=== PATIENT | female | born 1990 | race Caucasian/White ===

== ENCOUNTER 2016-07-15 20:32 | Outpatient (CLI) | payer OTHER ==
[~2016-07-15 20:32] MED LIST: ACYCLOVIR400 MG PO; PERCOCET1 TA1 PO; PRENATAL1 TAB PO
--- NOTE | 2016-07-15 20:52 | DIAGNOSTIC IMAGING REPORT ---
PROCEDURE: XR HAND 1 OR 2 VIEWS - RIGHT INDICATION: SUSPECTED FRACTURE OF RIGHT MIDDLE FINGER TECHNIQUE: Two views. COMPARISON: None. FINDINGS: There is mild radial deviation of the right third finger at the level of the distal interphalangeal joint. Associated mild soft tissue swelling. There is no evidence of fracture. The rest of the osseous structures and joint spaces are normal. IMPRESSION: 1. Mild radial deviation of the distal right third finger. Associated mild soft tissue swelling. Consider soft tissue injury or chronic changes. 2. No evidence of fracture.
== END 2016-07-15 23:00 ==
LOC: XR SRH 20:32
DX: M79.644 Pain in right finger(s) (principal); M79.89 Other specified soft tissue disorders

== ENCOUNTER 2016-12-23 08:32 | Outpatient (CLI) | payer OTHER ==
--- NOTE | 2016-12-23 10:11 | DIAGNOSTIC IMAGING REPORT ---
PROCEDURE: XR FOOT 3 VIEWS - RIGHT INDICATION: TOE PAIN RIGHT TECHNIQUE: Three views. COMPARISON: None. FINDINGS: Osseous structures and joint spaces are normal. IMPRESSION: 1. Normal right foot.
== END 2016-12-23 23:00 ==
LOC: XR SRH 08:32
DX: M79.674 Pain in right toe(s) (principal)